=== PATIENT | male | born 1945 | race Caucasian/White ===

== ENCOUNTER → 2017-07-26 | Outpatient (CLI) | payer OTHER ==
[~2017-07-26] MED LIST: GLUCOTROL5 MG PO; METFORMIN HCL500 MG PO
== END ==
LOC: RAD 08:49
DX: R06.02 Shortness of breath (principal)

== ENCOUNTER → 2017-09-10 | Outpatient (CLI) | payer OTHER | LOC: ULTRA 12:20 | DX: M79.89 Other specified soft tissue disorders (principal) ==